=== PATIENT | male | born 1925 | race Caucasian/White ===

== ENCOUNTER 2016-07-29 09:44 | Inpatient (IN) | payer MEDICARE, OTHER ==
[2016-07-29] VITALS (10 sets, daily range): BP systolic 80–200; BP diastolic 47–91; PULSE 61–76; RESP 12–18; O2SAT 96–100
[~2016-07-29] VITALS: Ht 191.8 cm; Wt 95.7 kg
--- NOTE | 2016-07-29 09:52 | ED.REPORT ---
HPI-General Illness Date of Service Jul 29, 2016 ED Provider: Marino Jefferson MD 89 year old male with a history of dementia presents to the ER via EMS from [facility] accompanied by his and shift superintendent due to increased agitation and decreased PO intake. However, shift superintendent reports that the patient is at his baseline, and has been eating and drinking normally for her. Splicing Machine Operator states that staff at [facility] suspected dehydration due to decreased suprapubic catheter output. She also suspects that the patient's catheter has not been properly cleaned and maintained at the assisted living facility. Unable to obtain any history from the patient due to underlying dementia. Nursing Notes Stated Complaint: AGITATION,DEC MENTATION Chief Complaint: General Complaint Nursing Notes Reviewed: Yes Allergies: Coded Allergies: Penicillins (Verified Allergy, Unknown, 06/12/16) General Time Seen by MD: 09:51 Transferred From: [facility] Chief Complaint Altered mental status Hx Obtained From: EMS Arrived By: Ambulance Sudden in Onset?: No Past Medical History Past Medical History BPH with obstruction Reports: GERD, Hypertension Reports: Dementia Past Surgical History TURP thyroidectomy colonscopy suprapubic cath Social History Lives at [facility] Other Social History: Good social support, , Local resident 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 Ambulatory Status Independent Review of Systems Unable to Obtain ROS Mental status Physical Exam Vital Signs Vital Signs Date Time Temp Pulse Resp B/P Pulse Ox O2 Delivery O2 Flow Rate FiO2 07/29/16 12:55 36.8 65 12 163/85 100 Room Air 07/29/16 12:19 36.7 14 126/57 99 Room Air 07/29/16 11:01 69 80/47 98 07/29/16 09:51 36.2 67 16 129/87 97 Room Air Initial VS: Reviewed Head / Eyes: Atraumatic, Normocephalic Neck: Supple, Non-tender, Full range of motion Extremities: Vascular intact, Neuro intact, No swelling, No tenderness Skin: Warm, Dry, No cyanosis General/Constitutional: Awake, Alert, Well developed, Well nourished Respiratory / Chest: Breath sounds NL, No respiratory distress, No rales, No rhonchi, No wheezing Cardiovascular: Heart rate NL, Regular rhythm, Heart sounds NL, Cap refill not delayed, Peripheral circulation NL Abdomen: Soft, Non-tender, No guarding, No rebound, No distention Suprapubic catheter, clean and dry with no signs of infection. Clear, yellow urine 1.2L in collection bag. Neurologic: Speech NL, No motor deficits, No sensory deficits Underlying dementia. Interpretation & Diagnostics Lab Results Interpretation Result Diagram: 07/29/16 1033 07/29/16 1033 Test 07/29/16 10:33 07/29/16 10:35 07/29/16 12:30 White Blood Count 5.7th/mm3 (3.8-10.1) Red Blood Count 4.04mil/mm3 (4.40-5.80) Hemoglobin 11.6g/dL (13.8-17.2) Hematocrit 35.6% (41.0-50.0) Mean Corpuscular Volume 88.1fL (81-100) Mean Corpuscular Hemoglobin 28.7pg (27.0-35.0) Mean Corpuscular Hemoglobin Concent 32.6% (32.0-37.0) Red Cell Distribution Width 13.2% (12.3-15.4) Platelet Count 187bil/L (150-400) Neutrophils (%) (Auto) 72.9% (40-74) Lymphocytes (%) (Auto) 15.6% (14-46) Monocytes (%) (Auto) 7.0% (4-12) Eosinophils (%) (Auto) 3.9% (0-5) Basophils (%) (Auto) 0.4% (0-3) Sodium Level 134mEq/L (134-144) Potassium Level 4.4mEq/L (3.5-5.2) Chloride Level 99mEq/L (97-108) Carbon Dioxide Level 24mmol/L (18-29) Blood Urea Nitrogen 27mg/dL (8-27) Creatinine 1.23mg/dL (0.76-1.27) Estimat Glomerular Filtration Rate 59mL/min (>59) Glucose Level 131mg/dL (60-99) Calcium Level 8.1mg/dL (8.5-10.1) Total Bilirubin 0.3mg/dL (0.0-1.2) Aspartate Amino Transf (AST/SGOT) 14U/L (0-50) Alanine Aminotransferase (ALT/SGPT) 8U/L (0-44) Alkaline Phosphatase 103U/L (25-160) Total Protein 6.0g/dL (6.4-8.4) Albumin 3.3g/dL (3.4-5.0) Urine Color Yellow (YELLOW) Urine Appearance Slightly cloudy Urine pH 6.5 (5.0-8.0) Urine Specific [place] 1.017 (1.003-1.035) Urine Protein Negativemg/dL (NEG,TRACE) Urine Glucose (UA) Negativemg/dL (NEGATIVE) Urine Ketones Negativemg/dL (NEGATIVE) Urine Occult Blood Moderate (NEGATIVE) Urine Nitrite Negative (NEGATIVE) Urine Bilirubin Negative (NEGATIVE) Urine Urobilinogen Normalmg/dL (NORMAL) Urine Leukocyte Esterase Moderate (NEGATIVE) Urine RBC 11-50/hpf (0-2) Urine WBC >50/hpf (0-5) Urine Epithelial Cells Few/hpf (NONE-MOD) Urine Crystals None seen (NONE SEEN) Urine Bacteria Many/hpf (NONE-FEW) Urine Hyaline Casts None/lpf (NONE) Urine Granular Casts None seen (NONE SEEN) Urine Waxy Casts None seen (NONE SEEN) Urine Red Blood Cell Casts None seen (NONE SEEN) Urine White Blood Cell Casts None seen (NONE SEEN) Urine Mucus None seen (None Seen) Urine Trichomonas None seen (NONE SEEN) Urine Yeast None (NONE SEEN) Urinalysis Comment None Urine Culture Reflexed Indicated Lactic Acid Level 2.0mmol/L (0.4-2.0) ECG Interpretation ECG Interpretation: Sinus rhythm, rate 68 Slight left axis deviation No ST segment changes No T wave abnormalities No change when compared to ECG 06/12/2016 Time: 10:55 Interpreted by: ED physician X-Ray Chest Interpretation Chest Xray Interpretation: IMPRESSION: Bibasilar consolidative opacities possibly pneumonia and/or aspiration. Recommend clinical correlation. Dictated by: Atif Alvarez M.D. on 07/29/2016 at 10:51 Approved by: Atif Alvarez M.D. on 07/29/2016 at 10:53 View: Portable, 1 view Interpretation / Wet Read by: Interpret - Radiologist Re-Eval/Medical Decision Med Decision/Clinical Course 89 year old male with a history of dementia presents to the ER via EMS from [facility] accompanied by his and shift superintendent due to increased agitation and decreased PO intake. Here in the emergency department the patient is afebrile though intermittently hypotensive with a blood pressure down into the 80s systolic, the patient's shift superintendent states that this is normal for him and that he has very labile blood pressures when he moves around. History is extremely limited from the patient due to his underlying dementia. Laboratory studies were obtained as below: CBC pending BUN 27 Creatinine 1.23 No significant electrolyte abnormalities Glucose 131 UA obtained from suprapubic catheter shows moderate leukocyte esterase, many bacteria, many WBC's Chest x-ray was obtained as above and demonstrated bibasilar pneumonia. Due to the patient's penicillin allergy he was treated with the below antibiotics: Vancomycin IV Levofloxacin IV Cefepime IV Overall presentation most consistent with bacterial pneumonia. While the patient did have one episode of hypotension this responded quickly to 1 L fluid bolus. He remained nontoxic in appearance and afebrile. Urinalysis from suprapubic catheter has been sent for culture was difficult to interpret at this time. While he may have urinary tract infection the above antibiotics should adequately cover this. At this time he remains hemodynamically stable. The patient discussed with admitting hospitalist accepted for further management. Source of Hx: Old records Consultation : Referral / Consult Name: Robert Deleon Consulted With: Hospitalist Call Returned at: 13:11 Service Restorer Emergency: Agrees with eval, Agrees with plan, Accepts admit Counseled Regarding: Diagnosis, Lab results, Need for admission Discharge & Departure Primary Impression: Pneumonia Pneumonia type: due to unspecified organism Laterality: bilateral Lung location: lower lobe of lung Qualified Code: J18.9 - Pneumonia, unspecified organism Additional Impressions: Hypotension Hypotension type: unspecified hypotension type Qualified Code: I95.9 - Hypotension, unspecified Altered mental status Altered mental status type: unspecified Qualified Code: R41.82 - Altered mental status, unspecified History of dementia Agitation Disposition: ADMITTED TO HOSPITAL Discharge Condition All VS Reviewed: Yes Condition: Stable Referrals: NOPCP (PCP) Laura Attestation Portions of this note were transcribed by Jt Vick. I, Dr. Jefferson, personally performed the history, physical exam and medical decision-making; I reviewed and confirmed the accuracy of the information in the transcribed note. Signed by: Laura Stafford, 07/29/2016 and 13:11 Marino Jefferson MD Jul 29, 2016 09:52 JT VICK Jul 29, 2016 09:56
[2016-07-29 10:42] LABS: BASOPHILS % (AUTO) 0.4 % (0-3); EOSINOPHILS % (AUTO) 3.9 % (0-5); Mean Corpuscular Hemoglobin 28.7 pg (27.0-35.0); Mean Corpuscular Volume 88.1 fL (81-100); NEUTROPHILS % (AUTO) 72.9 % (40-74); Platelet Count 187 bil/L (150-400)
--- NOTE | 2016-07-29 10:53 | DRSVH ---
PROCEDURE: X-RAY CHEST ONE VIEW, PORTABLE ([id number]) INDICATIONS: altered mental status, rule out pneumonia TECHNIQUE: One view of the chest was acquired. COMPARISON: [facility], CR, XR CHEST 1VW (PORTABLE), 06/12/2016, 21:50. FINDINGS: Surgical changes and devices: None. Lungs and pleura: No pleural effusions or pneumothorax. Patchy consolidative right basilar opacities are present. There is also retrocardiac consolidation. Mediastinum: Mediastinal contours appear normal. Heart size is normal. Bones and chest wall: No suspicious bony lesions. Overlying soft tissues appear unremarkable. IMPRESSION: Bibasilar consolidative opacities possibly pneumonia and/or aspiration. Recommend clinica l correlation. Dictated by: Atif Alvarez M.D. on 07/29/2016 at 10:51 Approved by: Atif Alvarez M.D. on 07/29/2016 at 10:53
[2016-07-29] MEDS ORDERED: 0.9% Sodium Chloride 1,000 ML IV ONE ×2 (10:55→12:06)
[2016-07-29 11:10] LABS: APPEARANCE,URINE SLIGHTLY CLOUDY (CLEAR,HAZY); COLOR,URINE YELLOW (YELLOW); OCCULT BLOOD,URINE MODERATE (NEGATIVE); PH,URINE 6.5 (5.0-8.0); UROBILINOGEN,URINE NORMAL (NORMAL)
[2016-07-29] MEDS ORDERED: Lactated Ringer's 1,000 ML IV SCH (12:06)
[2016-07-29] MEDS ORDERED: Cefepime Inj 2 GM in IV Premix 1 EACH IV ONE (12:10)
[2016-07-29] MEDS ORDERED: levoFLOXacin Inj 750 MG in IV Premix 1 EACH IV ONE (12:10)
[2016-07-29] MEDS ORDERED: Alum-Mag Hydrox-Simeth 30 mL Suspension PO PRN ×2 (12:10→17:25)
[2016-07-29] MEDS ORDERED: Ondansetron 2 mg/mL 2 mL Inj IVPUSH PRN ×2 (12:10→17:25)
[2016-07-29] MEDS ORDERED: Vancomycin Dose per Pharmacist XX ONE (12:10)
[2016-07-29] MEDS ORDERED: Vancomycin Inj 1,750 MG in 0.9% Sodium Chloride 500 ML IV ONE (12:20)
--- NOTE | 2016-07-29 14:26 | NUR ---
admit pt transferred to [facility] from ED. pt is accompanied by . pt is quite confused but resting in bed comfortably. One bag of vanco is sitting on pt's bed. tele started and vitals taken.
[2016-07-29] MEDS ORDERED: FINA5TAB9 PO (14:57)
[2016-07-29] MEDS ORDERED: OMEP20CA11 PO (14:57)
[2016-07-29] MEDS ORDERED: FLUD0.1T PO (14:57)
[2016-07-29] MEDS ORDERED: OSEL75CA15 PO (14:57)
[2016-07-29] MEDS ORDERED: LOSA50TA37 PO (14:57)
[2016-07-29] MEDS ORDERED: TRAM50TA2 PO (14:59)
[2016-07-29] MEDS ORDERED: RIVA4.5C5 PO (14:59)
[2016-07-29] MEDS ORDERED: SERT50TA9 PO (15:02)
[2016-07-29] MEDS ORDERED: TRIM100T PO (15:02)
[2016-07-29] MEDS ORDERED: MIDO10TA PO (15:08)
[2016-07-29] MEDS ORDERED: ERGO2000 PO (15:08)
[2016-07-29] MEDS ORDERED: ACET325T51 PO (15:08)
[2016-07-29] MEDS ORDERED: CARV12.52 PO (15:08)
[2016-07-29 15:19] LABS: BASOPHILS % (AUTO) 0.4 % (0-3); EOSINOPHILS % (AUTO) 4.2 % (0-5); Mean Corpuscular Hemoglobin 28.5 pg (27.0-35.0); Mean Corpuscular Volume 88.4 fL (81-100); NEUTROPHILS % (AUTO) 68.3 % (40-74); Platelet Count 177 bil/L (150-400)
[2016-07-29 16:46] LABS: TROPONIN T 0.013 ug/L (0.0-0.011)
[2016-07-29] MEDS ORDERED: Polyethylene Glycol (PEG) 17 Gm Powder PO PRN (17:25)
[2016-07-29] MEDS ORDERED: MIDODRINE 10 MG PO PRN (17:40)
[2016-07-29 18:00] LABS: APPEARANCE,URINE CLEAR (CLEAR,HAZY); COLOR,URINE STRAW (YELLOW); OCCULT BLOOD,URINE TRACE (NEGATIVE); UROBILINOGEN,URINE NORMAL (NORMAL)
--- NOTE | 2016-07-29 18:09 | PCM.HPMED ---
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 Unable to obtain any meaningful history from the patient due to underlying dementia. According to his he has been quite agitated over the past week but otherwise has note had any other specific symptoms or complaints such as cough, rhinorrhea, SOB, diarrhea, fever or chills. She reports dissatisfaction with the care that patient gets for his suprapubic catheter at the [facility] and notes she would not be surprised if he had UTI. Patient otherwise denies any issues or complaints at this time. In the ED his CXR was suggestive of pneumonia per radiology and patient received broad spectrum Abx for possible healthcare associated pneumonia. Allergies Coded Allergies: Penicillins (Verified Allergy, Unknown, 06/12/16) Home Medications Oseltamivir Phosphate 75 Mg PO DAILY Trimethoprim 100 Mg PO HS UTI Prophylaxis UTI Prophylaxis Midodrine 10 Mg PO PRN PRN PRN SBP<95 PRN SBP<95 Rivastigmine 4.5 Mg PO BID Carvedilol 12.5 Mg PO PRN PRN HTN, SBP >180 Losartan Potassium 50 Mg PO Acetaminophen 325 Mg PO Q4H PRN Sertraline HCl 50 Mg PO DAILY Tramadol 50 Mg PO Q6H PRN Omeprazole 20 Mg PO BID Fludrocortisone Acetate 0.1 Mg PO UD Ergocalciferol (Vitamin D2) 50,000 Unit PO WEEKLY Finasteride 5 Mg PO DAILY Exam Vital Signs & I/O Vital Sign- Last 8 Hours Date Time Temp Pulse Resp B/P Pulse Ox O2 Delivery O2 Flow Rate FiO2 07/29/16 15:51 61 07/29/16 14:33 36.9 63 16 200/91 97 Room Air 07/29/16 12:55 36.8 65 12 163/85 100 Room Air 07/29/16 12:19 36.7 14 126/57 99 Room Air 07/29/16 11:01 69 80/47 98 07/29/16 09:51 36.2 67 16 129/87 97 Room Air Lab & Micro Results Laboratory Tests Test 07/29/16 10:33 07/29/16 10:35 07/29/16 12:30 07/29/16 14:57 White Blood Count 5.7th/mm3 (3.8-10.1) 5.5th/mm3 (3.8-10.1) Red Blood Count 4.04mil/mm3 (4.40-5.80) 3.79mil/mm3 (4.40-5.80) Hemoglobin 11.6g/dL (13.8-17.2) 10.8g/dL (13.8-17.2) Hematocrit 35.6% (41.0-50.0) 33.5% (41.0-50.0) Mean Corpuscular Volume 88.1fL (81-100) 88.4fL (81-100) Mean Corpuscular Hemoglobin 28.7pg (27.0-35.0) 28.5pg (27.0-35.0) Mean Corpuscular Hemoglobin Concent 32.6% (32.0-37.0) 32.2% (32.0-37.0) Red Cell Distribution Width 13.2% (12.3-15.4) 13.2% (12.3-15.4) Platelet Count 187bil/L (150-400) 177bil/L (150-400) Neutrophils (%) (Auto) 72.9% (40-74) 68.3% (40-74) Lymphocytes (%) (Auto) 15.6% (14-46) 17.9% (14-46) Monocytes (%) (Auto) 7.0% (4-12) 9.0% (4-12) Eosinophils (%) (Auto) 3.9% (0-5) 4.2% (0-5) Basophils (%) (Auto) 0.4% (0-3) 0.4% (0-3) Sodium Level 134mEq/L (134-144) 137mEq/L (134-144) Potassium Level 4.4mEq/L (3.5-5.2) 4.7mEq/L (3.5-5.2) Chloride Level 99mEq/L (97-108) 101mEq/L (97-108) Carbon Dioxide Level 24mmol/L (18-29) 23mmol/L (18-29) Blood Urea Nitrogen 27mg/dL (8-27) 26mg/dL (8-27) Creatinine 1.23mg/dL (0.76-1.27) 1.15mg/dL (0.76-1.27) Estimat Glomerular Filtration Rate 59mL/min (>59) 64mL/min (>59) Glucose Level 131mg/dL (60-99) 108mg/dL (60-99) Calcium Level 8.1mg/dL (8.5-10.1) 7.9mg/dL (8.5-10.1) Total Bilirubin 0.3mg/dL (0.0-1.2) 0.3mg/dL (0.0-1.2) Aspartate Amino Transf (AST/SGOT) 14U/L (0-50) 15U/L (0-50) Alanine Aminotransferase (ALT/SGPT) 8U/L (0-44) 9U/L (0-44) Alkaline Phosphatase 103U/L (25-160) 102U/L (25-160) Total Protein 6.0g/dL (6.4-8.4) 5.5g/dL (6.4-8.4) Albumin 3.3g/dL (3.4-5.0) 3.3g/dL (3.4-5.0) Urine Color Yellow (YELLOW) Urine Appearance Slightly cloudy Urine pH 6.5 (5.0-8.0) Urine Specific [place] 1.017 (1.003-1.035) Urine Protein Negativemg/dL (NEG,TRACE) Urine Glucose (UA) Negativemg/dL (NEGATIVE) Urine Ketones Negativemg/dL (NEGATIVE) Urine Occult Blood Moderate (NEGATIVE) Urine Nitrite Negative (NEGATIVE) Urine Bilirubin Negative (NEGATIVE) Urine Urobilinogen Normalmg/dL (NORMAL) Urine Leukocyte Esterase Moderate (NEGATIVE) Urine RBC 11-50/hpf (0-2) Urine WBC >50/hpf (0-5) Urine Epithelial Cells Few/hpf (NONE-MOD) Urine Crystals None seen (NONE SEEN) Urine Bacteria Many/hpf (NONE-FEW) Urine Hyaline Casts None/lpf (NONE) Urine Granular Casts None seen (NONE SEEN) Urine Waxy Casts None seen (NONE SEEN) Urine Red Blood Cell Casts None seen (NONE SEEN) Urine White Blood Cell Casts None seen (NONE SEEN) Urine Mucus None seen (None Seen) Urine Trichomonas None seen (NONE SEEN) Urine Yeast None (NONE SEEN) Urinalysis Comment None Urine Culture Reflexed Indicated Lactic Acid Level 2.0mmol/L (0.4-2.0) Troponin T 0.013ug/L (0.0-0.011) Pro-B-Type Natriuretic Peptide 536.2pg/mL (0-486) Test 07/29/16 17:28 Microbiology 07/29/16 Blood Culture, Received Pending 07/29/16 Urine Culture, Received Pending Result Diagram: 07/29/16 1457 07/29/16 1457 Review of Systems: Constitutional: Negative, except as otherwise mentioned in the history above. Ophthalmologic: Negative, except as otherwise mentioned in the history above. Cardiovascular: Negative, except as otherwise mentioned in the history above. Respiratory: Negative, except as otherwise mentioned in the history above. Gastrointestinal: Negative, except as otherwise mentioned in the history above. Genitourinary: Negative, except as otherwise mentioned in the history above. Musculoskeletal: Negative, except as otherwise mentioned in the history above. Neurological: Negative, except as otherwise mentioned in the history above. Psychiatric: Negative, except as otherwise mentioned in the history above. Hematologic/Lymphatic: Negative, except as otherwise mentioned in the history above. Allergic/Immunologic: Negative, except as otherwise mentioned in the history above. PMH According to patient's : - HTN - Atonic bladder post suprapubic cath in 2008 - GERD - autonomic dysfunction resulting in labile BP - advanced dementia (unknown type) Family History no family history of heart disease Social History Hx Alcohol Use: No Hx Substance Use: No Smoking Status: Never Smoker Exam Vital Signs Vital Sign - Last Date Time Temp Pulse Resp B/P Pulse Ox O2 Delivery O2 Flow Rate FiO2 07/29/16 15:51 61 07/29/16 14:33 36.9 16 200/91 97 Room Air General: Alert, Cooperative, No Acute Distress, Other (disoriented x 3) Eyes: PERRLA, EOMI, Scleral Anicteric Nose: Mucous Membr Moist/[place] Mouth: Mucous Membr Moist/[place] Neck: Supple Chest & Lungs: Chest Wall Normal, Clear to auscultation & percussion Cardiovascular: Regular Rate/Rhythm Pulses: NL carotid, radial, femoral, DP, PT Abdomen: Non-tender, Non-distended, Normoactive bowel tones, Soft, Other ( suprapubic cath in place with small puss at the incertion site) Extremities: No cyanosis/clubbing/edma bilat Neurological: Grossly Neurologically Intact, Cranial Nerves 2-12 Intact, Normal Speech Lymphatic: Other Lymph Nodes (no significant lymphadenopathy) Additional Information: Psych: calm, appropriate and cooperative Lab and Diagnostics Result Diagram: 07/29/16 1457 07/29/16 1457 X-Rays, CTs and MRIs Date of Service: 07/29/16 1017 PROCEDURE: X-RAY CHEST ONE VIEW, PORTABLE ([id number]) IMPRESSION: Bibasilar consolidative opacities possibly pneumonia and/or aspiration. Recommend clinical correlation. Dictated by: Atif Alvarez M.D. on 07/29/2016 at 10:51 Approved by: Atif Alvarez M.D. on 07/29/2016 at 10:53 Assessment & Plan 89 year old male with history of advanced dementia, chronic suprapubic catheter and autonomic dysfunction with resulting labile blood pressures presents via EMS from [facility] with report of increased agitation and decreased PO intake. # Acute UTI. present on admission - c/w Cefepime started in ED - f/u pending cultures - change suprapubic cath in am # Suspected acute pneumonia on admission based on CXR. - clinically seems unlikely given patient afebrile, no respiratory symptoms and without any significant leukocytosis - deescalate broad spectrum Abx that was started in ED - f/u pending cultures - check procalcitonin - f/u clinically # Acute agitation reported on admission. Likely acute exacerbation of dementia in combination of possible acute delirium from underlying UTI. - currently appears improved - Abx as noted above - c/w supportive care # Autonomic dysfunction with labile BP - c/w prn midodrine and carvedilol from outpatient - prn IV Hydralazine - f/u on Tele # GERD, chronic. stable - c/w PPI # History of dementia. - c/w supportive care # Mildly elevated Trop without any reported CP - f/u repeat Trop in am Expected length of hospital stay is greater than 2 midnights and likely 2-3 days GI Prophylaxis: Proton Pump Inhibitor VTE Prophylaxis: Sub-Q Enoxaparin VTE Mechanical Devices: Venous Foot Pump Resuscitation Status: DNR/DNI:Do Not Resuscitate/Intubate (discussed and verified with pt's ) Time spent 60 min Robert Deleon Jul 29, 2016 18:09
[2016-07-29] MEDS: Pantoprazole 40 mg ER24 Tablet PO SCH (22:28)
[2016-07-29] MEDS: Cefepime Inj 2,000 MG in Dextrose 5% Minibag Plus 100 ML IV SCH (22:28)
[2016-07-29] MEDS: hydrALAZINE 20 mg/mL Inj IV PRN (23:04)
[2016-07-30] VITALS (7 sets, daily range): BP systolic 125–221; BP diastolic 73–102; PULSE 62–83; RESP 16–18; O2SAT 97–99
--- NOTE | 2016-07-30 05:26 | NUR ---
Uneventful Night A&Ox1. Patient needs to be oriented to place and time frequently. Denies SOB on RA. Denies chest pain.
[2016-07-30 07:33] LABS: BASOPHILS % (AUTO) 0.5 % (0-3); EOSINOPHILS % (AUTO) 4.2 % (0-5); MONOCYTES % (AUTO) 10.4 % (4-12); Mean Corpuscular Volume 87.9 fL (81-100); NEUTROPHILS % (AUTO) 67.9 % (40-74); Platelet Count 195 bil/L (150-400)
[2016-07-30 08:06] LABS: TROPONIN T 0.011 ug/L (0.0-0.011)
[2016-07-30 08:17] LABS: Magnesium 1.9 mg/dL (1.6-2.6)
[2016-07-30] MEDS: Cefepime Inj 2,000 MG in Dextrose 5% Minibag Plus 100 ML IV SCH ×2 (08:47→20:57)
[2016-07-30] MEDS: Pantoprazole 40 mg ER24 Tablet PO SCH (08:48)
--- NOTE | 2016-07-30 12:40 | NUR ---
Behavior/pain Pt is clutching at sheets and gown, refusing to allow this RN to assist with getting covered. Pt does not want suprapubic cath to be touched. This RN advised pt the cath needs to be changed. Pt reports sharp stabbing pain, unable to quantify with numeric pain scale, sts "yes" to offer of Morphine. 1 Mg of IV Morphine given as ordered. Ketty at bedside, assisting with oral intake. Frequent rounding in place, will continue to monitor.
--- NOTE | 2016-07-30 13:41 | NUR ---
Evaluation completed. Please go to "Notes" then click on "Assessments and Notes" (bottom left corner of screen). Then select appropriate discipline tab on top of screen.
--- NOTE | 2016-07-30 14:20 | NUR ---
spiritual care: pt request conversational visit with pt's Leah. Pt sleepy and explained, "just had morphine" Leah described on social situation; couple very recently moved from [facility] to [facility] to be nearer son but he is on extended overseas trip. She described pt's decline and affects of dementia including agitation, and expressing frustration and pain. She described feelings of isolation and helplessness. supportive listening, will follow.
--- NOTE | 2016-07-30 15:14 | PCM.PNMED ---
Subjective Date of Service Jul 30, 2016 Subjective denies any complaints. his thinks he is agitated Exam Vital Signs Vital Sign - Last Date Time Temp Pulse Resp B/P Pulse Ox O2 Delivery O2 Flow Rate FiO2 07/30/16 12:52 62 07/30/16 08:31 36.9 18 125/73 97 Room Air Intake and Output 07/29/16 07/29/16 07/30/16 Cumulative From/Thru 15:00 23:00 07:00 07/29/16 09:51 - 07/29/16 20:06 Intake Total 1000 ml 589 ml 1589 ml Output Total 250 ml 1500 ml 1750 ml Balance 750 ml -911 ml -161 ml Intake Oral 200 ml 200 ml IV Total 1000 ml 389 ml 1389 ml Output Urine Total 250 ml 1500 ml 1750 ml Exam General: Alert, Cooperative, No Acute Distress, Other (disoriented x 3) Eyes: PERRLA, EOMI, Scleral Anicteric Nose: Mucous Membr Moist/[place] Mouth: Mucous Membr Moist/[place] Neck: Supple Chest & Lungs: Chest Wall Normal, Clear to auscultation bilat Cardiovascular: Regular Rate/Rhythm Abdomen: Non-tender, Non-distended, Normoactive bowel tones, Soft, Other ( suprapubic cath in place with small puss at the incertion site) Extremities: No cyanosis/clubbing/edema bilat Neurological: Grossly Neurologically Intact, Cranial Nerves 2-12 Intact, Normal Speech IVs and Medications Medications Reviewed: Medications were reviewed in detail Lab and Diagnostics Result Diagram: 07/30/16 0710 07/30/16 0710 X-Rays, CTs and MRIs Date of Service: 07/29/16 1017 PROCEDURE: X-RAY CHEST ONE VIEW, PORTABLE ([id number]) IMPRESSION: Bibasilar consolidative opacities possibly pneumonia and/or aspiration. Recommend clinical correlation. Dictated by: Atif Alvarez M.D. on 07/29/2016 at 10:51 Approved by: Atif Alvarez M.D. on 07/29/2016 at 10:53 Assessment & Plan 89 year old male with history of advanced dementia, chronic suprapubic catheter and autonomic dysfunction with resulting labile blood pressures presents via EMS from [facility] with report of increased agitation and decreased PO intake. # Acute UTI. present on admission - c/w Cefepime started in ED - f/u pending cultures - change suprapubic cath # Suspected acute pneumonia on admission based on CXR. - clinically seems unlikely given patient afebrile, no respiratory symptoms and without any significant leukocytosis. negative procalcitonin - deescalate broad spectrum Abx that was started in ED - f/u pending cultures - f/u clinically # Acute agitation reported on admission. Likely acute exacerbation of dementia in combination of possible acute delirium from underlying UTI. - currently appears improved - Abx as noted above - c/w supportive care # Autonomic dysfunction with labile BP - c/w prn midodrine and carvedilol from outpatient - prn IV Hydralazine - f/u on Tele # GERD, chronic. stable - c/w PPI # History of dementia. - c/w supportive care # Mildly elevated Trop without any reported CP - f/u repeat Trop in am Dispo: 1-2 days pending culture results GI Prophylaxis: Proton Pump Inhibitor VTE Prophylaxis: Sub-Q Enoxaparin VTE Mechanical Devices: Venous Foot Pump Resuscitation Status: DNR/DNI:Do Not Resuscitate/Intubate (discussed and verified with pt's ) Time spent 25 min Robert Deleon Jul 30, 2016 15:14
--- NOTE | 2016-07-30 15:43 | NUR ---
Catheter change Pt is very protective of abdomen, informed will need to change supra-pubic catheter. All supplies gathered, security alerted to need for assistance. 1 Mg IV Morphine given appr 2 hrs prior. Pt is very reluctant to allow staff to change catheter. Security assisted by holding upper arms for safety of patient and staff. Supra-pubic catheter changed as ordered. Pt verbalized discomfort with procedure, however was able to tolerate replacement. Spouse at bedside. Call light within reach, will continue to monitor.
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
[2016-07-30] MEDS: hydrALAZINE 20 mg/mL Inj IV PRN (21:24)
[2016-07-31 03:47] VITALS: BP 149/74; PULSE 63; RESP 17; O2SAT 96
--- NOTE | 2016-07-31 03:50 | NUR ---
Pain Pt seems to be in a lot of pain and states that he's hurting. Pt getting agitated and don't want to be moved. Administered morphine PRN. Seems to be effective. New IV lines put on by charge nurse. Will continue to monitor.
[2016-07-31] MEDS: Cefepime Inj 2,000 MG in Dextrose 5% Minibag Plus 100 ML IV SCH ×2 (09:03→20:28)
[2016-07-31] MEDS: Pantoprazole 40 mg ER24 Tablet PO SCH (09:05)
[2016-07-31 13:29] VITALS: BP 125/81; PULSE 68; RESP 17; O2SAT 96
--- NOTE | 2016-07-31 13:37 | NUR ---
JESSIE completed with patient at bedside.
--- NOTE | 2016-07-31 14:08 | NUR ---
Social Work Continued Discharge Planning: SW spoke to [facility] rep Alysia to discuss discharge plan. Alysia states patient would benefit for SNF placement upon discharge due to patient current clinical course. SW spoke to patient at bedside to discuss discharge plan. aware and in agreement to SNF placement at [facility] or [facility]. SW provided access and faxed face sheet. SW will follow up with facilities for acceptance after clinical review. SW will continue to review therapy notes. SW to follow. PLAN: From [facility]. Referrals sent to [facility] and [facility] for review. SW to follow. Chadd MINOR
--- NOTE | 2016-07-31 17:04 | PCM.PNMED ---
Subjective Date of Service Jul 31, 2016 Subjective denies any complaints. Exam Vital Signs Vital Sign - Last Date Time Temp Pulse Resp B/P Pulse Ox O2 Delivery O2 Flow Rate FiO2 07/31/16 13:29 36.3 68 17 125/81 96 Room Air Intake and Output 07/30/16 07/30/16 07/31/16 Cumulative From/Thru 15:00 23:00 07:00 07/29/16 09:51 - 07/31/16 06:48 Intake Total 0 ml 640 ml 120 ml 2349 ml Output Total 1600 ml 1150 ml 950 ml 5450 ml Balance -1600 ml -510 ml -830 ml -3101 ml Intake Oral 0 ml 640 ml 0 ml 840 ml IV Total 120 ml 1509 ml Output Urine Total 1600 ml 1150 ml 950 ml 5450 ml # Bowel Movements 0 0 0 Exam General: Alert, Cooperative, No Acute Distress, Other (disoriented x 3) Eyes: PERRLA, EOMI, Scleral Anicteric Nose: Mucous Membr Moist/[place] Mouth: Mucous Membr Moist/[place] Neck: Supple Chest & Lungs: Chest Wall Normal, Clear to auscultation bilat Cardiovascular: Regular Rate/Rhythm Abdomen: Non-tender, Non-distended, Normoactive bowel tones, Soft, Other ( suprapubic cath in place) Extremities: No cyanosis/clubbing/edema bilat Neurological: Grossly Neurologically Intact, Cranial Nerves 2-12 Intact, Normal Speech Lab and Diagnostics Result Diagram: 07/30/16 0710 07/30/16 0710 X-Rays, CTs and MRIs Date of Service: 07/29/16 1017 PROCEDURE: X-RAY CHEST ONE VIEW, PORTABLE ([id number]) IMPRESSION: Bibasilar consolidative opacities possibly pneumonia and/or aspiration. Recommend clinical correlation. Dictated by: Atif Alvarez M.D. on 07/29/2016 at 10:51 Approved by: Atif Alvarez M.D. on 07/29/2016 at 10:53 Assessment & Plan 89 year old male with history of advanced dementia, chronic suprapubic catheter and autonomic dysfunction with resulting labile blood pressures presents via EMS from [facility] with report of increased agitation and decreased PO intake. # Acute UTI. present on admission - c/w Cefepime started in ED - f/u pending cultures - changed suprapubic cath on 07/30/16 # Suspected acute pneumonia on admission based on CXR. - clinically seems unlikely given patient afebrile, no respiratory symptoms and without any significant leukocytosis. negative procalcitonin - deescalate broad spectrum Abx that was started in ED - f/u pending cultures - f/u clinically # Acute agitation reported on admission. Likely acute exacerbation of dementia in combination of possible acute delirium from underlying UTI. - currently appears improved - Abx as noted above - c/w supportive care # Autonomic dysfunction with labile BP - c/w prn midodrine and carvedilol from outpatient - prn IV Hydralazine - f/u on Tele # GERD, chronic. stable - c/w PPI # History of dementia. - c/w supportive care # Mildly elevated Trop without any reported CP - repeat Trop negative Dispo: 1-2 days pending culture results GI Prophylaxis: Proton Pump Inhibitor VTE Prophylaxis: Sub-Q Enoxaparin VTE Mechanical Devices: Venous Foot Pump Resuscitation Status: DNR/DNI:Do Not Resuscitate/Intubate (discussed and verified with pt's ) Robert Deleon Jul 31, 2016 17:03
--- NOTE | 2016-07-31 17:28 | NUR ---
spiritual care: follow up accompanied pt's to cafeteria, she offered updates and coping. spiritual care to follow
[2016-07-31 20:04] LABS: APPEARANCE,URINE CLEAR (CLEAR,HAZY); COLOR,URINE YELLOW (YELLOW); OCCULT BLOOD,URINE MODERATE (NEGATIVE); UROBILINOGEN,URINE NORMAL (NORMAL)
[2016-07-31] MEDS ORDERED: 0.9% Sodium Chloride 250 ML ONE (20:30)
[2016-07-31 21:24] VITALS: PULSE 71; RESP 18; O2SAT 96
[2016-08-01 05:37] VITALS: BP 147/73; PULSE 69; RESP 14; O2SAT 94
--- NOTE | 2016-08-01 06:37 | NUR ---
ABx/Agitation Pt seems to be agitated upon repositioning. Position pt in comfort with [employer]. ABx administered IV and as scheduled. No s/sx of respiratory or cardiac distress throughout the shift, and has been afebrile overnight. Hourly rounding done and pt has slept most of the night.
[2016-08-01] MEDS: Pantoprazole 40 mg ER24 Tablet PO SCH (09:33)
[2016-08-01] MEDS: Cefepime Inj 2,000 MG in Dextrose 5% Minibag Plus 100 ML IV SCH (09:40)
--- NOTE | 2016-08-01 09:46 | NUR ---
Infection Prevention Placed in contact isolation precautions; report of multidrug resistant organism, Carbapenum resistant enterobacter bacteremia from [facility]. Nurse and student nurse notified of need for strict contact precautions.
[2016-08-01] MEDS: diphenhydrAMINE 25 mg Capsule PO PRN ×2 (12:22→17:58)
--- NOTE | 2016-08-01 12:28 | NUR ---
Rash Upon assessment this am it was noted that pt has rash on left flank to hip region. MD notified, who wanted just some topical lotion and further observation. At approx 1215 it was clear that the rash had spread to bilateral arms and appeared to be a reaction to medication. IV stopped & MD informed. MD ordered PO benadryl. Continuing to monitor.
--- NOTE | 2016-08-01 12:28 | NUR ---
Student Nurse - ABX reaction At approximately 1200, assessment of pt showed pt to have moderate urticaria on forearms and back. IV site was infiltrated as well. IV was stopped and the provider was notified; IV was removed, IV catheter was intact. Pt was ordered PO benadryl, which was administered at 1230. Pt currently with .
--- NOTE | 2016-08-01 14:29 | NUR ---
PT NOTE-- Patient continues to be agitated and not appropriate to mobilize with PT. Patient discharged from PT services at this time.
[2016-08-01 14:38] VITALS: BP 146/68; PULSE 64; RESP 18; O2SAT 94
--- NOTE | 2016-08-01 16:46 | NUR ---
Pt belongings Pt had wedding ring recovered and given to spouses . left with possession of ring at 1647.
--- NOTE | 2016-08-01 17:23 | PCM.PNMED ---
Subjective Date of Service Aug 01, 2016 Subjective denies any complaints. nursing reports new rash on upper torso Exam Vital Signs Vital Sign - Last Date Time Temp Pulse Resp B/P Pulse Ox O2 Delivery O2 Flow Rate FiO2 08/01/16 14:38 36.9 64 18 146/68 94 Room Air Intake and Output 07/31/16 07/31/16 08/01/16 Cumulative From/Thru 15:00 23:00 07:00 07/29/16 09:51 - 08/01/16 06:33 Intake Total 666 ml 0 ml 3015 ml Output Total 300 ml 650 ml 6400 ml Balance 366 ml -650 ml -3385 ml Intake Oral 536 ml 0 ml 1376 ml IV Total 130 ml 1639 ml Output Urine Total 300 ml 650 ml 6400 ml # Bowel Movements 0 Exam General: Alert, Cooperative, No Acute Distress, Other (disoriented x 3) Eyes: PERRLA, EOMI, Scleral Anicteric Nose: Mucous Membr Moist/[place] Mouth: Mucous Membr Moist/[place] Neck: Supple Chest & Lungs: Chest Wall Normal, Clear to auscultation bilat Cardiovascular: Regular Rate/Rhythm Abdomen: Non-tender, Non-distended, Normoactive bowel tones, Soft, Other ( suprapubic cath in place) Extremities: No cyanosis/clubbing/edema bilat Neurological: Grossly Neurologically Intact, Cranial Nerves 2-12 Intact, Normal Speech Skin: mild faint rash on the left side of chest IVs and Medications Medications Reviewed: Medications were reviewed in detail Lab and Diagnostics Result Diagram: 07/30/16 0710 07/30/16 0710 X-Rays, CTs and MRIs Date of Service: 07/29/16 1017 PROCEDURE: X-RAY CHEST ONE VIEW, PORTABLE ([id number]) IMPRESSION: Bibasilar consolidative opacities possibly pneumonia and/or aspiration. Recommend clinical correlation. Dictated by: Atif Alvarez M.D. on 07/29/2016 at 10:51 Approved by: Atif Alvarez M.D. on 07/29/2016 at 10:53 Assessment & Plan 89 year old male with history of advanced dementia, chronic suprapubic catheter and autonomic dysfunction with resulting labile blood pressures presents via EMS from [facility] with report of increased agitation and decreased PO intake. # Suspected acute UTI. present on admission - urine cultures from admission growing more than 3 organisms suggestive of contamination - treated with Cefepime since admission. - stop Cefepime given possible drug reaction / rash - repeat UA on 07/31 again looks somewhat positive - f/u pending cultures - changed suprapubic cath on 07/30/16 # Suspected acute pneumonia on admission based on CXR. - clinically seems unlikely given patient afebrile, no respiratory symptoms and without any significant leukocytosis. negative procalcitonin - deescalate broad spectrum Abx that was started in ED - f/u pending cultures - f/u clinically # Acute agitation reported on admission. Likely acute exacerbation of dementia in combination of possible acute delirium from underlying UTI. - currently appears improved - Abx as noted above - c/w supportive care # Autonomic dysfunction with labile BP - c/w prn midodrine and carvedilol from outpatient - prn IV Hydralazine - f/u on Tele # GERD, chronic. stable - c/w PPI # History of dementia. - c/w supportive care # Mildly elevated Trop without any reported CP - repeat Trop negative Dispo: 1-2 days pending urine studies noted above GI Prophylaxis: Proton Pump Inhibitor VTE Prophylaxis: Sub-Q Enoxaparin VTE Mechanical Devices: Intermittant Pneumatic CD Resuscitation Status: DNR/DNI:Do Not Resuscitate/Intubate (discussed and verified with pt's ) Robert Deleon Aug 01, 2016 17:23
[2016-08-01 21:16] VITALS: BP 141/87; PULSE 81; RESP 16; O2SAT 96
[2016-08-02 04:55] VITALS: BP 139/84; PULSE 65; RESP 16; O2SAT 94
--- NOTE | 2016-08-02 05:41 | NUR ---
Skin Patient had reaction to cefepime on previous shift, skin rash on shoulders and arms improving. Patient doesn't seem to be itching. Patient has not had a bowel movement for 2-3 days, senna was given on previous shift and had a smear at 0515. Patient agitated with turning, seems to be resting comfortably, call light in reach.
[2016-08-02] MEDS: Pantoprazole 40 mg ER24 Tablet PO SCH (07:53)
--- NOTE | 2016-08-02 09:10 | NUR ---
JESSIE signed Verbal permission to sign by pts spouse over phone. IVÁN Bañuelos
[2016-08-02 13:04] VITALS: BP 143/73; PULSE 81; RESP 18; O2SAT 96
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
--- NOTE | 2016-08-02 13:33 | NUR ---
Social Work: Readiness for d/c Data: Pt is on day 4 of hospitalization. EMR reviewed. Pt discussed in rounds. states pt is medically ready for d/c today. HUMAN FACTORS SPECIALIST called [facility] Eileen Whitaker and Malinda Granado who were reviewing pt. Pt continues to decline PT and both facilities cannot take pt as he is not skillable. HUMAN FACTORS SPECIALIST called [facility] who came in this AM to review pt for coming back to their facility. HUMAN FACTORS SPECIALIST spoke with Alysia who did bedside assessment with pt and she states that [facility] cannot take pt back. She states that she talked with pt's spouse about moving pt to [facility] and she is agreeable to this. Alysia states that Jeannie ([phone]) from [facility] will be at the hospital to do a bedside assessment this afternoon. HUMAN FACTORS SPECIALIST called pt's who states she is agreeable to pt moving to [facility] and that she visited today and is working on the paper work. HUMAN FACTORS SPECIALIST states that pt is medically ready for d/c today and we will try to get him to [facility] today. Pt's spouse states she is worried about getting all of the paperwork done today but will continue working on it. HUMAN FACTORS SPECIALIST will follow up with [facility] after assessment. HUMAN FACTORS SPECIALIST will continue to follow. Assessment: Pt with dementia. Plan: Pt will d/c to [facility], likely today or tomorrow. [facility] coming to hospital this afternoon to assess pt. HUMAN FACTORS SPECIALIST will continue to follow. IVÁN Bañuelos
--- NOTE | 2016-08-02 15:30 | NUR ---
Social Work: Continued d/c planning Data: Pt is on day 4 of hospitalization. EMR reviewed. DEVELOPMENTAL THERAPIST spoke with Jeannie RN with [facility] who states they can take pt. They requested a form to be filled out by hospitalist then faxed back to them at [phone]. DEVELOPMENTAL THERAPIST spoke with pt's who states she continues to work on the paperwork. DEVELOPMENTAL THERAPIST requested this be completed by 10am on 08/03/16. DEVELOPMENTAL THERAPIST requested MD complete the needed form, MD agreeable. UR specialist and DEVELOPMENTAL THERAPIST reviewed chart, pt will need to transport via BLS. DEVELOPMENTAL THERAPIST will continue to follow. Assessment: Pt with dementia. Plan: Pt will d/c to [facility] the morning on 08/03/16 via BLS. to complete form for [facility]. DEVELOPMENTAL THERAPIST will continue to follow. IVÁN Bañuelos
[2016-08-02 20:32] VITALS: BP 136/82; PULSE 82; RESP 18; O2SAT 97
--- NOTE | 2016-08-03 02:41 | NUR ---
Medication and Assessment Patient was cooperative with taking his Exelon medication. He was willing to take it in blueberry yogurt with some water. When I was assessing the patient he asked a lot of questions but was cooperative. He is modest and likes to be covered with the sheet. He kept asking where Ketty (his ) was. Patient is lying in bed with the head at 10 degrees and resting comfortably.
[2016-08-03 05:12] VITALS: BP 129/62; PULSE 74; RESP 18; O2SAT 96
[2016-08-03 07:12] LABS: BASOPHILS % (AUTO) 0.5 % (0-3); EOSINOPHILS % (AUTO) 4.4 % (0-5); MONOCYTES % (AUTO) 12.1 % (4-12); Mean Corpuscular Hemoglobin 29.2 pg (27.0-35.0); NEUTROPHILS % (AUTO) 58.3 % (40-74); Platelet Count 207 bil/L (150-400)
[2016-08-03] MEDS: Pantoprazole 40 mg ER24 Tablet PO SCH (08:28)
--- NOTE | 2016-08-03 09:07 | PCM.DIMED ---
Discharge Instructions Date of Service Aug 03, 2016 Dates of Hospitalization Jul 29, 2016 at 13:14 Discharge Diagnosis Discharge Diagnosis # Suspected acute UTI. present on admission; resolved # Suspected acute pneumonia on admission based on CXR. Resolved/ruled-out # Acute agitation reported on admission. Likely acute exacerbation of dementia in combination of possible acute delirium from underlying UTI, now resolved/ baseilned. # Autonomic dysfunction with labile BP # GERD, chronic. stable # History of dementia. Diet No restrictions Activity No restrictions Call your provider Fever or Chills, Shortness of breath, Chest pain Patient Instructions Follow-up Provider: Arturo Gautam MD Follow-up with PCP in: 2 weeks Eldon Seo DO Aug 03, 2016 09:07
--- NOTE | 2016-08-03 09:14 | PCM.DC.MED ---
Discharge Summary Date of Service Aug 03, 2016 Dates of Hospitalization Date of Hospital Admission Jul 29, 2016 at 13:14 Date of Discharge: Aug 03, 2016 Providers: Admitting Physician: Robert Deleon Primary Care Physician: Arturo Gautam MD Attending Physician: Robert Deleon Diagnosis at Time of Discharge Diagnosis at Time of Discharge # Suspected acute UTI. present on admission; resolved # Suspected acute pneumonia on admission based on CXR. Resolved/ruled-out # Acute agitation reported on admission. Likely acute exacerbation of dementia in combination of possible acute delirium from underlying UTI, now resolved/ baseilned. # Autonomic dysfunction with labile BP # GERD, chronic. stable # History of dementia. Procedures XRay, CTs & MRIs Date of Service: 07/29/16 1017 PROCEDURE: X-RAY CHEST ONE VIEW, PORTABLE ([id number]) IMPRESSION: Bibasilar consolidative opacities possibly pneumonia and/or aspiration. Recommend clinical correlation. Dictated by: Atif Alvarez M.D. on 07/29/2016 at 10:51 Approved by: Atif Alvarez M.D. on 07/29/2016 at 10:53 Brief History As per HPI by Dr. 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 Unable to obtain any meaningful history from the patient due to underlying dementia. According to his he has been quite agitated over the past week but otherwise has note had any other specific symptoms or complaints such as cough, rhinorrhea, SOB, diarrhea, fever or chills. She reports dissatisfaction with the care that patient gets for his suprapubic catheter at the [facility] and notes she would not be surprised if he had UTI. Patient otherwise denies any issues or complaints at this time. In the ED his CXR was suggestive of pneumonia per radiology and patient received broad spectrum Abx for possible healthcare associated pneumonia." Hospital Course # Suspected acute UTI. present on admission - urine cultures from admission growing more than 3 organisms suggestive of contamination, follow-up urine culture drawn on 07/31 demonstrates no evidence of growth following replacement of suprapubic cath. He had been treated with Cefepime since admission, which was discontinued on 08/01 following concern for allergic reaction as evidenced by skin rash on chest. Rash has resolved, but given negative urine studies, antibiotics not restarted. # Suspected acute pneumonia on admission based on CXR: It was initially suspected based on imaging, but clinically seemed unlikely given patient afebrile, no respiratory symptoms and without any significant leukocytosis. negative procalcitonin. No further treatment provided for this condition./ Stable repository function of discharge. Acute agitation reported on admission. Likely acute exacerbation of dementia in combination of possible acute delirium from underlying UTI: appears back to baseline at time of DC. NO medication changes made. # Autonomic dysfunction with labile BP: Stable during hospitalization, continued home medications. Exam Vital Signs (Last) Date Time Temp Pulse Resp B/P Pulse Ox O2 Delivery O2 Flow Rate FiO2 08/03/16 05:12 36.7 74 18 129/62 96 Room Air Exam Demented , but pleasantly so, seated comfortably in hospital bed breathing comfortably without distress Heart RRR, lungs CTA Abd: suprapubic cath in place, surrounding tissue non-infected appearance, no erythema/swelling . Test 07/29/16 12:30 07/29/16 14:57 07/30/16 07:10 07/31/16 18:40 Lactic Acid Level 2.0mmol/L (0.4-2.0) Total Bilirubin 0.3mg/dL (0.0-1.2) Aspartate Amino Transf (AST/SGOT) 15U/L (0-50) Alanine Aminotransferase (ALT/SGPT) 9U/L (0-44) Alkaline Phosphatase 102U/L (25-160) Pro-B-Type Natriuretic Peptide 536.2pg/mL (0-486) Total Protein 5.5g/dL (6.4-8.4) Albumin 3.3g/dL (3.4-5.0) Magnesium Level 1.9mg/dL (1.6-2.6) Troponin T 0.011ug/L (0.0-0.011) Procalcitonin 0.08ng/mL (0.00-0.08) Thyroid Stimulating Hormone (TSH) 4.380uIU/mL (0.450-4.500) Urine Color Yellow (YELLOW) Urine Appearance Clear (CLEAR,HAZY) Urine pH 6.0 (5.0-8.0) Urine Specific [place] 1.025 (1.003-1.035) Urine Protein 30mg/dL (NEG,TRACE) Urine Glucose (UA) Negativemg/dL (NEGATIVE) Urine Ketones Tracemg/dL (NEGATIVE) Urine Occult Blood Moderate (NEGATIVE) Urine Nitrite Negative (NEGATIVE) Urine Bilirubin Negative (NEGATIVE) Urine Urobilinogen Normalmg/dL (NORMAL) Urine Leukocyte Esterase Moderate (NEGATIVE) Urine RBC 3-10/hpf (0-2) Urine WBC 6-10/hpf (0-5) Urine Epithelial Cells None/hpf (NONE-MOD) Urine Crystals None seen (NONE SEEN) Urine Bacteria Few/hpf (NONE-FEW) Urine Hyaline Casts None/lpf (NONE) Urine Granular Casts None seen (NONE SEEN) Urine Waxy Casts None seen (NONE SEEN) Urine Red Blood Cell Casts None seen (NONE SEEN) Urine White Blood Cell Casts None seen (NONE SEEN) Urine Mucus Present (None Seen) Urine Trichomonas None seen (NONE SEEN) Urine Yeast None (NONE SEEN) Urinalysis Comment None Urine Culture Reflexed Indicated Test 08/03/16 06:45 White Blood Count 5.9th/mm3 (3.8-10.1) Red Blood Count 4.08mil/mm3 (4.40-5.80) Hemoglobin 11.9g/dL (13.8-17.2) Hematocrit 35.9% (41.0-50.0) Mean Corpuscular Volume 88.0fL (81-100) Mean Corpuscular Hemoglobin 29.2pg (27.0-35.0) Mean Corpuscular Hemoglobin Concent 33.1% (32.0-37.0) Red Cell Distribution Width 13.1% (12.3-15.4) Platelet Count 207bil/L (150-400) Neutrophils (%) (Auto) 58.3% (40-74) Lymphocytes (%) (Auto) 24.4% (14-46) Monocytes (%) (Auto) 12.1% (4-12) Eosinophils (%) (Auto) 4.4% (0-5) Basophils (%) (Auto) 0.5% (0-3) Sodium Level 140mEq/L (134-144) Potassium Level 5.3mEq/L (3.5-5.2) Chloride Level 102mEq/L (97-108) Carbon Dioxide Level 25mmol/L (18-29) Blood Urea Nitrogen 41mg/dL (8-27) Creatinine 1.31mg/dL (0.76-1.27) Estimat Glomerular Filtration Rate 55mL/min (>59) Glucose Level 102mg/dL (60-99) Calcium Level 8.8mg/dL (8.5-10.1) Microbiology Results Laboratory Tests Test 07/31/16 18:40 Urine Color Yellow Urine Appearance Clear Urine pH 6.0 Urine Specific [place] 1.025 Urine Protein 30mg/dL Urine Glucose (UA) Negativemg/dL Urine Ketones Tracemg/dL Urine Occult Blood Moderate Urine Nitrite Negative Urine Bilirubin Negative Urine Urobilinogen Normalmg/dL Urine Leukocyte Esterase Moderate Urine RBC 3-10/hpf Urine WBC 6-10/hpf Urine Epithelial Cells None/hpf Urine Crystals None seen Urine Bacteria Few/hpf Urine Hyaline Casts None/lpf Urine Granular Casts None seen Urine Waxy Casts None seen Urine Red Blood Cell Casts None seen Urine White Blood Cell Casts None seen Urine Mucus Present Urine Trichomonas None seen Urine Yeast None Urinalysis Comment None Urine Culture Reflexed Indicated Discharge Medications Discharge Medications Ergocalciferol (Vitamin D2) (Vitamin D2) 2,000 Unit Tablet 50,000 UNIT PO WEEKLY (Reported) Finasteride (Finasteride) 5 Mg Tablet 5 MG PO DAILY (Reported) Fludrocortisone Acetate (Fludrocortisone Acetate) 0.1 Mg Tablet 0.1 MG PO UD ( Reported) Omeprazole (Omeprazole) 20 Mg Capsule.dr 20 MG PO BID (Reported) Oseltamivir Phosphate (Oseltamivir Phosphate) 75 Mg Capsule 75 MG PO DAILY ( Reported) Rivastigmine (Rivastigmine) 4.5 Mg Capsule 4.5 MG PO BID (Reported) Sertraline HCl (Sertraline) 50 Mg Tablet 50 MG PO DAILY (Reported) Trimethoprim (Trimethoprim) 100 Mg Tablet 100 MG PO HS (Reported) As needed Acetaminophen (Acetaminophen) 325 Mg Tablet 325 MG PO Q4H PRN PRN For Fever ( Reported) Carvedilol (Carvedilol) 12.5 Mg Tablet 12.5 MG PO PRN PRN PRN HTN, SBP >180 ( Reported) Midodrine (Midodrine) 10 Mg Tablet 10 MG PO PRN PRN PRN SBP<95 (Reported) Tramadol (Tramadol) 50 Mg Tablet 50 MG PO Q6H PRN PRN For Pain (Reported) Miscellaneous Medications Losartan Potassium (Losartan Potassium) 50 Mg Tablet 50 MG PO (Reported) Followup Plan Discharge Diet: No restrictions Discharge Activity: No restrictions Follow-up Provider: Arturo Gautam MD Follow-up with PCP in: 2 weeks Time spent 40 minutes copies to: Arturo Gautam MD, Benjamin P DO Aug 03, 2016 09:14
--- NOTE | 2016-08-03 09:24 | NUR ---
Arranged S transport for 945 AM via [facility], patient is going to [facility]. Updated [employer] REMOVER
[2016-08-03 09:28] VITALS: BP 126/74; PULSE 75; RESP 16; O2SAT 97
--- NOTE | 2016-08-03 09:28 | NUR ---
Social Work: Discharge Data: Pt is on day 5 of hospitalization. EMR reviewed. D/C orders are in. BLS transportation set up for 9:45am. SURVEY ANALYST notified pt's spouse and advised her that there is no way to preauthorize BLS transportation with insurance and that there is a chance they could be charged. Pt's spouse states understanding. SURVEY ANALYST notified Mary Beth Naverus that BLS transportation is set up fro 9: 45AM this morning. Clinicals faxed. SURVEY ANALYST notified RN, UA, pt, family, and MD. No further d/c planning needs anticipated at this time. SURVEY ANALYST will continue to follow. Assessment: Pt with dementia. Plan: Pt will d/c to [facility] via BLS at 9:45am. Clinicals faxed. SURVEY ANALYST notified RN, UA, pt, family, and MD. No further d/c planning needs anticipated at this time. SURVEY ANALYST will continue to follow. IVÁN Bañuelos
--- NOTE | 2016-08-03 10:30 | NUR ---
Discharge D/C to [facility] via [facility] with at bedside. Report called to Rosa Elena and body sheet faxed over. Suprapubic catheter patent and secured. Tylenol admin prior to transport for stiffness. Discovered no documented BMs but sips of Miralax admin prior to d/c.
== END 2016-08-03 10:00 | DRG 699 ==
LOC: SED 09:44 → EDBD 09:44 → MPC 13:14
PROVIDERS: ADMIT Internal Medicine; ATTEND Internal Medicine
DX: T83.518A Infection and inflammatory reaction due to other urinary catheter, initial encounter (principal); N39.0 Urinary tract infection, site not specified; F03.90 Unspecified dementia, unspecified severity, without behavioral disturbance, psychotic disturbance, mood disturbance, and anxiety; K21.9 Gastro-esophageal reflux disease without esophagitis; I10 Essential (primary) hypertension; N40.0 Benign prostatic hyperplasia without lower urinary tract symptoms; Z66 Do not resuscitate; R41.0 Disorientation, unspecified; R21 Rash and other nonspecific skin eruption; Z88.0 Allergy status to penicillin; R45.1 Restlessness and agitation